=== PATIENT | male | born 2000 | race African-American/Black ===

== ENCOUNTER 2024-03-19 17:17 | Emergency (ER) | payer OTHER ==
[2024-03-19 17:26] VITALS: BP 132/76; PULSE 78; RESP 20; TEMP 98.3; BMI 19.9
[2024-03-19] MEDS ORDERED: IBUPROFEN 400 MG TABLET (FP) PO ONE (18:27)
[2024-03-19] MEDS ORDERED: ACETAMINOPHEN 500 MG TABLET (FP) ONE (18:27)
[2024-03-19] MEDS: ACETAMINOPHEN 500 MG TABLET (FP) PO ONE (18:33)
[2024-03-19] MEDS: IBUPROFEN 400 MG TABLET (FP) PO ONE (18:33)
[2024-03-19 19:43] LABS: HIV INTERPRETATION NEGATIVE (NEGATIVE)
== END 2024-03-19 20:10 | disposition home or self-care (01) ==
LOC: JER 17:17
DX: R07.2 Precordial pain (principal)
CPT/HCPCS: 36415; 71045-TC-FY; 84484; 86803; 87389; 93005; 93010; 99285-25